=== PATIENT | male | born 1985 | race Caucasian/White ===

== ENCOUNTER 2016-09-12 15:50 | Emergency (ER) | payer SELFPAY ==
[~2016-09-12] VITALS: Wt 98.0 kg
[2016-09-12] MEDS ORDERED: KETOROLAC 15 MG INJ IV STA (16:28)
[2016-09-12] MEDS ORDERED: SOD CHLORIDE 0.9% 1,000 ML IV STA (16:28)
[2016-09-12 16:59] LABS: HEMOGLOBIN 15.8 g/dl (14.0-18.0); UNCORRECTED WBC 8.5 10^3/ul (4.8-10.8); WHITE BLOOD COUNT 8.5 10^3/ul (4.8-10.8)
[2016-09-12 17:00] LABS: BASOPHILS % 0.4 % (0.0-2.0); EOSINOPHILS % 12.2 % (0.0-7.0); LYMPHOCYTES # 2.4 10^3/ul (0.8-2.9); LYMPHOCYTES % 28.3 % (15.0-51.0); MEAN CORPUSCULAR HGB CONC 34.4 g/dl (32.0-37.0); MEAN CORPUSCULAR VOLUME 90.3 fl (82.0-101.0); MONOCYTE # 0.7 10^3/ul (0.3-0.9); NEUTROPHIL # 4.4 10^3/ul (1.6-7.5); NEUTROPHILS % 51.1 % (39.0-77.0); PLATELET COUNT 342 10^3/UL (140-440); RED CELL DISTRIBUTION WIDTH 12.9 % (11.5-14.5)
[2016-09-12 17:09] LABS: CONDITION 1
[2016-09-12 17:10] LABS: ALBUMIN 4.3 g/dl (3.3-4.9); POTASSIUM 3.5 mmol/L (3.5-5.1)
[2016-09-12 17:12] LABS: BILIRUBIN,INDIRECT 0.3 mg/dl (0-1.1); BILIRUBIN,TOTAL 0.3 mg/dl (0.2-1.3); CREATININE 0.72 mg/dl (0.61-1.24)
[2016-09-12 17:13] LABS: ALBUMIN/GLOBULIN RATIO 1.26; CALCIUM 9.4 mg/dl (8.4-10.2); TOTAL PROTEIN 7.7 g/dl (6.1-8.1)
--- NOTE | 2016-09-12 17:23 | ERD ---
ER Documentation Chief Complaint Date/Time DATE: 09/12/16 TIME: 17:21 Chief Complaint HEADACHE BACKPAIN AND BILATERAL ARM NUMBNESS. NO NEURO DEF. NO TRAUMA HPI This is a 31-year-old male who presents to the emergency room for evaluation of body aches, back pain, and generalized weakness for the past 2 weeks. The patient denies any trauma, describes his body aches is being worse in the morning. The patient denies any fever, sick contacts, recent travel and came to the ER for evaluation. ROS All systems reviewed and are negative except as per history of present illness. PMhx/Soc Medical and Surgical Hx: pt denies Medical Hx, pt denies Surgical Hx Hx Alcohol Use: No Hx Substance Use: No Hx Tobacco Use: No Physical Exam Vitals Vital Signs Date Time Temp Pulse Resp B/P Pulse Ox O2 Delivery O2 Flow Rate FiO2 09/12/16 15:52 98.5 85 20 140/81 98 Physical Exam Const: No acute distress Head: Atraumatic Eyes: Normal Conjunctiva ENT: Dry mucous membranes, normal External Ears, Nose and Mouth. Neck: Full range of motion..~ No meningismus. Resp: Clear to auscultation bilaterally Cardio: Regular rate and rhythm, no murmurs Abd: Soft, non tender, non distended. Normal bowel sounds Skin: No petechiae or rashes Back: No midline or flank tenderness Ext: No cyanosis, or edema Neur: Awake and alert Psych: Normal Mood and Affect Result Diagram: 09/12/16 1655 09/12/16 1655 Results 24 hrs Laboratory Tests Test 09/12/16 16:55 Alanine Aminotransferase (ALT/SGPT) 38IU/L Albumin 4.3g/dl Albumin/Globulin Ratio 1.26 Alkaline Phosphatase 84IU/L Anion Gap 18 Aspartate Amino Transf (AST/SGOT) 31IU/L Basophils # 0.010^3/ul Basophils % 0.4% Blood Morphology Comment Blood Urea Nitrogen 13mg/dl Calcium Level 9.4mg/dl Carbon Dioxide Level 29mmol/L Chloride Level 99mmol/L Creatine Kinase 103IU/L Creatinine 0.72mg/dl Direct Bilirubin 0.00mg/dl Eosinophils # 1.010^3/ul Eosinophils % 12.2% Globulin 3.40g/dl Glucose Level 92mg/dl Hematocrit 46.0% Hemoglobin 15.8g/dl Indirect Bilirubin 0.3mg/dl Lymphocytes # 2.410^3/ul Lymphocytes % 28.3% Mean Corpuscular Hemoglobin 31.0pg Mean Corpuscular Hemoglobin Concent 34.4g/dl Mean Corpuscular Volume 90.3fl Mean Platelet Volume 7.0fl Monocytes # 0.710^3/ul Monocytes % 8.0% Neutrophils # 4.410^3/ul Neutrophils % 51.1% Nucleated Red Blood Cells # 0.010^3/ul Nucleated Red Blood Cells % 0.0/100WBC Platelet Count 76803^3/UL Potassium Level 3.5mmol/L Red Blood Count 5.1010^6/ul Red Cell Distribution Width 12.9% Sodium Level 142mmol/L Total Bilirubin 0.3mg/dl Total Protein 7.7g/dl White Blood Count 8.510^3/ul Current Medications Medications (Trade) Dose Ordered Sig/Migdalia Route PRN Reason Start Time Stop Time Status Last Admin Dose Admin Sodium Chloride (NS) 1,000 ml @ 1,000 mls/hr Q1H STAT IV 09/12/16 16:28 09/12/16 17:27 09/12/16 17:11 Ketorolac Tromethamine (Toradol) 15 mg ONCE STAT IV 09/12/16 16:28 09/12/16 16:30 DC 09/12/16 17:10 Procedures/MDM This 31-year-old male presents to the ER for evaluation of multiple complaints including body aches, back pain, generalized malaise. I evaluated this patient and he did have dry mucous membranes. The patient did have lab work drawn including a CK level of which are normal. No signs of fever, or disseminated infection at this time. The patient was given Toradol, 1 L of IV fluids, and upon my reevaluation this patient appears to be more comfortable and less distress. I advised him to increase his fluid intake as he is slightly dehydrated on my examination. The patient verbalized understanding and will be discharged home with a prescription for Motrin for body aches. Departure Diagnosis: Primary Impression: Multiple complaints Additional Impression: Myalgia Condition: Stable APURVA GUERRERO DO Sep 12, 2016 17:23
[2016-09-12] MEDS ORDERED: IBUP800T25 PO (17:24)
[2016-09-12 17:46] LABS: ADD UMIC YES; URINE BILIRUBIN (Dip) NEGATIVE (NEGATIVE); URINE BLOOD (Dip) TRACE (NEGATIVE); URINE COLOR LT. YELLOW (YELLOW); URINE GLUCOSE (Dip) NEGATIVE (NEGATIVE); URINE KETONES (Dip) NEGATIVE (NEGATIVE); URINE LEUKOCYTE ESTERASE (Dip) NEGATIVE (NEGATIVE); URINE NITRITE (Dip) NEGATIVE (NEGATIVE); URINE TOTAL PROTEIN (Dip) NEGATIVE (NEGATIVE); URINE UROBILINOGEN (Dip) 1.0 E.U./dL (0.1-1.0)
[2016-09-12 18:19] VITALS: BP 133/80; PULSE 83; RESP 20; TEMP 98.2
== END 2016-09-12 18:20 | disposition home or self-care (01) ==
LOC: FTE 15:50
DX: R53.1 Weakness (principal); M79.1 Myalgia; R51 Headache; R20.0 Anesthesia of skin; M54.9 Dorsalgia, unspecified
CPT/HCPCS: 80053; 81001; 81003; 82550; 82553; 84484; 85025; 96374; 99284; J1885; J7030

== ENCOUNTER 2016-12-03 16:56 | Emergency (ER) | payer MEDICAID ==
[~2016-12-03] VITALS: Ht 170.2 cm; Wt 90.0 kg
[~2016-12-03 16:56] MED LIST: IBUP800T25 PO
[2016-12-03 17:06] VITALS: Ht 170.2 cm; Wt 90.0 kg
[2016-12-03] MEDS ORDERED: HYDROCODONE/APAP (5/325) TAB PO ONE (18:30)
--- NOTE | 2016-12-03 19:02 | RADRPT ---
PROCEDURE: XR Right Foot. CLINICAL INDICATION: Right foot pain. TECHNIQUE: Three views. Frontal, lateral, and oblique. COMPARISON: None. FINDINGS: There is a possible nondisplaced chip fracture arising from the proximal articular surface of the fi rst proximal phalanx medially. There is no other fracture and there is no dislocation. The articul ar surfaces are otherwise intact. There is soft tissue swelling overlying the first metatarsal phalangeal joint. There is no lytic or blastic lesion. There is no radiopaque foreign body. IMPRESSION: 1. Possible nondisplaced chip fracture arising from the proximal articular surface of the first pro ximal phalanx medially. 2. Otherwise unremarkable study. RPTAT: QQ .Mahesh Armas MD, MD Date Time Electronically viewed and signed by .Mahesh Armas MD, on 12/03/2016 19:02 .R/
[2016-12-03 19:32] LABS: ADD SCAN DIFF NO
[2016-12-03 19:38] LABS: BASOPHILS % 0.5 % (0.0-2.0); EOSINOPHILS # 0.6 10^3/ul (0.0-0.5); EOSINOPHILS % 7.3 % (0.0-7.0); HEMATOCRIT 44.9 % (42.0-52.0); HEMOGLOBIN 15.5 g/dl (14.0-18.0); LYMPHOCYTES # 2.8 10^3/ul (0.8-2.9); LYMPHOCYTES % 33.3 % (15.0-51.0); MEAN CORPUSCULAR HEMOGLOBIN 30.9 pg (29.0-33.0); MEAN CORPUSCULAR HGB CONC 34.5 g/dl (32.0-37.0); MEAN CORPUSCULAR VOLUME 89.6 fl (82.0-101.0); MEAN PLATELET VOLUME 8.8 fl (7.4-10.4); MONOCYTE # 0.7 10^3/ul (0.3-0.9); NEUTROPHIL # 4.1 10^3/ul (1.6-7.5); NEUTROPHILS % 49.7 % (39.0-77.0); PLATELET COUNT 318 10^3/UL (140-415); RED BLOOD COUNT 5.01 10^6/ul (4.70-6.10); RED CELL DISTRIBUTION WIDTH 12.4 % (11.5-14.5); WHITE BLOOD COUNT 8.3 10^3/ul (4.8-10.8)
[2016-12-03] MEDS ORDERED: IBUP-1542 PO (20:43)
[2016-12-03] MEDS ORDERED: HYDR-906 PO (20:43)
[2016-12-03] MEDS ORDERED: COLC0.6T6 PO (20:43)
[2016-12-03 21:05] VITALS: BP 126/84; PULSE 73; RESP 16; TEMP 99
--- NOTE | 2016-12-04 13:40 | ERD ---
ER Documentation Chief Complaint Date/Time DATE: 12/04/16 TIME: 13:16 Chief Complaint LEFT FOOT PAIN, NO TRAUMA HPI This is a 31 year old male who presents to the ED with right foot pain for 2 days. Pt describes the pain as continuous, throbbing with a gradual onset. Pain is mostly on the medial dorsal metatarsal area that extends to the plantar side. Pain worsens upon ambulation. Denies any trauma. Denies numbness, weakness, tingling or fever. Pt did not take any medications for symptom relief. Denies smoking and drinks beer occasionally. Medical and surgical history are unremarkable. ROS All systems reviewed and are negative except as per history of present illness. Medications Home Meds Active Scripts Colchicine* (Colcrys*) 0.6 Mg Tablet, 0.6 MG PO DAILY for 3 Days, TAB Prov:UMAIR HERNANDES 12/03/16 Ibuprofen* (Motrin*) 600 Mg Tab, 600 MG PO Q6, #30 TAB Prov:UMAIR HERNANDES 12/03/16 Hydrocodone/Acetaminophen ([place] 5-325 Tablet) 1 Each Tablet, 1 TAB PO Q6H Y for PAIN, #7 TAB Prov:UMAIR HERNANDES 12/03/16 Ibuprofen* (Motrin*) 800 Mg Tab, 800 MG PO Q6H Y for PAIN AND OR ELEVATED TEMP, #30 TAB Prov:APURVA GUERRERO DO 09/12/16 Allergies Allergies: Coded Allergies: No Known Allergy (Unverified , 12/03/16) PMhx/Soc Medical and Surgical Hx: pt denies Medical Hx, pt denies Surgical Hx Hx Alcohol Use: No Hx Substance Use: No Hx Tobacco Use: No Smoking Status: Never smoker Physical Exam Vitals Vital Signs Date Time Temp Pulse Resp B/P Pulse Ox O2 Delivery O2 Flow Rate FiO2 12/03/16 21:05 99.0 73 16 126/84 97 Room Air 12/03/16 17:06 98.1 79 20 131/86 99 Physical Exam Physical Exam CONST: Well-developed, well-nourished, in no acute distress. Nontoxic in appearance. HEENT: Atraumatic. Normal conjunctiva. EOM intact. TM intact. External ear is normal. Clear oropharnyx without erythema. No uvular deviation. Moist mucous membranes. Supple neck.~ No meningismus. No submandibular induration. RESP: Clear to auscultation bilaterally. No wheezing.~ CARDIO: Regular rate and rhythm, no murmurs. ABD: Soft, non tender, non distended. Normal bowel sounds. No McBurney's point tenderness. No guarding or rigidity. No peritoneal signs. SKIN: Minimal swelling on the right 1st metatarsophalangeal area. Warm to touch. No induration or swelling. BACK: No midline or flank tenderness. EXT: Decreased ROM on the metatarsophalangeal joint due to pain. No cyanosis. Distal pulses equal and bilateral. NEURO: Awake and alert, appropriate for age. 5/5 strength in all extremities. Normal speech. Steady gait. Result Diagram: 12/03/161924 Results 24 hrs Laboratory Tests Test 12/03/16 19:25 White Blood Count 8.310^3/ul Red Blood Count 5.0110^6/ul Hemoglobin 15.5g/dl Hematocrit 44.9% Mean Corpuscular Volume 89.6fl Mean Corpuscular Hemoglobin 30.9pg Mean Corpuscular Hemoglobin Concent 34.5g/dl Red Cell Distribution Width 12.4% Platelet Count 27151^3/UL Mean Platelet Volume 8.8fl Neutrophils % 49.7% Lymphocytes % 33.3% Monocytes % 9.0% Eosinophils % 7.3% Basophils % 0.5% Nucleated Red Blood Cells % 0.0/100WBC Neutrophils # 4.110^3/ul Lymphocytes # 2.810^3/ul Monocytes # 0.710^3/ul Eosinophils # 0.610^3/ul Basophils # 0.010^3/ul Nucleated Red Blood Cells # 0.010^3/ul Uric Acid 8.7mg/dl Current Medications Medications (Trade) Dose Ordered Sig/Migdalia Route PRN Reason Start Time Stop Time Status Last Admin Dose Admin Acetaminophen/ Hydrocodone Bitart ([place] (5/325)) 1 tab ONCE ONCE PO 12/03/16 18:30 12/03/16 18:31 DC 12/03/16 18:42 PROCEDURE: XR Right Foot. CLINICAL INDICATION: Right foot pain. TECHNIQUE: Three views. Frontal, lateral, and oblique. COMPARISON: None. FINDINGS: There is a possible nondisplaced chip fracture arising from the proximal articular surface of the first proximal phalanx medially. There is no other fracture and there is no dislocation. The articular surfaces are otherwise intact. There is soft tissue swelling overlying the first metatarsal phalangeal joint. There is no lytic or blastic lesion. There is no radiopaque foreign body. IMPRESSION: 1. Possible nondisplaced chip fracture arising from the proximal articular surface of the first proximal phalanx medially. 2. Otherwise unremarkable study. RPTAT: QQ .Mahesh Armas MD, Date Time Electronically viewed and signed by .Mahesh Armas MD, on 12/03/2016 19:02 Procedures/[facility] EMERGENCY DEPARTMENT COURSE/MEDICAL DECISION MAKING This is a 31 year old male who comes to the emergency room secondary to complaints of non-traumatic right foot pain for 2 days. The patient was given [place] in the department. On re-evaluation, the patient's symptoms improved. XR of the right foot was done to rule out fracture and was interpreted by a radiologist. Results shows a possible displaced chip fracture on the 1st proximal phalanx medially. Given the pt's presentation of foot swelling, warmth and pain, I have ordered CBC and Uric acid to rule out gout. Result shows an elevated eosinophil level of 7.3 and uric acid of 8.7. My primary diagnosis is gout. Secondary diagnosis is right foot pain Differential diagnoses considered but not limited to osteomyelitis, cellulitis, fracture, gout, DVT, foreign body, muscle strain, tendinitis, dislocation. Pt is hemodynamically stable upon reassessment. There are no new complaints during the ED course. The patient was discharged for outpatient management with a prescription for colchicine, ibuprofen and norco. The patient was advised to followup with their PMD and an orthopedist in 1-2 days. Pt was also instructed to return to the Emergency Department if there are any new or worsening symptoms. The patient understood and agreed with the diagnosis, treatment and plan. Patient is stable for discharge at this time. Departure Diagnosis: Primary Impression: Gout Gout site: foot Gout etiology: unspecified cause Laterality: right Chronicity: acute Qualified Code: M10.9 - Acute gout of right foot, unspecified cause Additional Impression: Foot pain, right Condition: Stable Patient Instructions: Treating Gout Attacks Ref[facility]: [facility] Usted se villa hecho un examen mdico de control que le indica que no est en kaiden condicin que requiera tratamiento urgente en el Departamento de Emergencia. Un estudio ms profundo y el tratamiento de vargas condicin pueden esperar sin ningn riesgo hasta que usted sea atendida/o en el consultorio de vargas mdico o kaiden cl nigel. Es responsabilidad suya arreglar kaiden ady para el seguimiento del robert. MANEJO DE CONDICIONES NO URGENTES EN EL FUTURO 1) Si usted tiene un mdico de atencin primaria: Usted debera llamar a vargas mdico de atencin primaria antes de venir al departamento de emergencia. Despus de las horas de consultorio, vargas doctor o vargas asociado/a est disponible por telfono. El mdico o enfermero de rigoberto en el servicio telefnico puede asesorarle por miguel medio para atender el problema, o robert contrario se puede programar kaiden ady. 2) Si usted no tiene un mdico de atencin primaria: Llame al mdico o clnica de referencia que aparece abajo irish las horas de consultorio para hacer kaiden ady para que le vean. CLINICAS: [facility] [phone] [facility] [phone] [facility] [phone] [address] [facility]. [facility] [phone] [facility]. [place] [id number] [phone] [facility]. [phone] [address] [facility]. [facility] () Usted se villa hecho un examen mdico de control que le indica que no est en kaiden condicin que requiera tratamiento urgente en el Departamento de Emergencia. Un estudio ms profundo y el tratamiento de vargas condicin pueden esperar sin ningn riesgo hasta que usted sea atendida/o en el consultorio de vargas mdico o kaiden cl nigel. Es responsabilidad suya arreglar kaiden ady para el seguimiento del robert. MANEJO DE CONDICIONES NO URGENTES EN EL FUTURO 1) Si usted tiene un mdico de atencin primaria: Usted debera llamar a vargas mdico de atencin primaria antes de venir al departamento de emergencia. Despus de las horas de consultorio, vargas doctor o vargas asociado/a est disponible por telfono. El mdico o enfermero de rigoberto en el servicio telefnico puede asesorarle por miguel medio para atender el problema, o robert contrario se puede programar kaiden ady. 2) Si usted no tiene un mdico de atencin primaria: Llame al mdico o condado institucions de referencia que aparece abajo irish las horas de consultorio para hacer kaiden ady para que le vean. SI USTED NO PUEDE PAGAR PARA ODELL UN MEDICO puede ir a: [facility] [address] [place] [address] [facility] [address] [place] [address] [facility] [address] [place] [address] [facility] [address] [place] [address] [facility] 7 a.m.- 11 p.m. Every Day of the Week NO APPOINTMENT OR AUTHORIZATION NEEDED Additional Instructions: Llame a vargas mdico de atencin primaria maana para hacer kaiden ady irish los pr ximos veag 1-2. Volver al Departamento de la emergencia inmediatamente si tiene cualquier s ntoma nuevo o que empeora. [place] todos los medicamentos maría lo indique. UMAIR HERNANDES December 04, 2016 13:28
== END 2016-12-03 21:06 | disposition home or self-care (01) ==
LOC: FTE 16:56
DX: M10.9 Gout, unspecified (principal)
CPT/HCPCS: 73630; 84560; 85025; Z7502; Z7610